=== PATIENT | male | born 1950 | race Caucasian/White ===

== ENCOUNTER → 2019-10-03 | Outpatient (CLI) | payer OTHER ==
[~2019-10-03] VITALS: Ht 177.8 cm; Wt 79.5 kg
[~2019-10-03] MED LIST: ARMOUR THYROID180 M1 PO; BYSTOLIC10 MG PO; CRESTOR20 MG PO; FISH OIL 1,0001 EAC9 PO; NEXIUM40 MG PO; PAMELOR25 MG PO; VALSARTAN-HCTZ1 EAC1 PO; XARELTO20 MG PO
[2019-10-03 07:10] VITALS: BP 133/48
--- NOTE | 2019-10-03 08:21 | NUR ---
PT RESTING. RESPONDS TO VERBAL STIMULI. AT BEDSIDE.
--- NOTE | 2019-10-03 08:49 | TEE ---
[facility] [address] [place] [address] TRANSESOPHAGEAL ECHOCARDIOGRAM Name: DEXDAYSI I [id number] Admission: 10/03/19 Attend Phys: Fletcher Chaudhry, Discharge: Date of : 50 Report #: [id number] THIS REPORT FOR: //name// APPROVED REPORT Study performed: 10/03/2019 07:29:57 EXAM: Comprehensive 2D, Doppler, and color-flow Echocardiogram Patient Location: Out-Patient Room #: 9 Status: routine BSA: 1.97 HR: 47 bpm BP: 111/54 mmHg Rhythm: Bradycardia Other Information Study Quality: Excellent Indications Atrial Fibrillation Echo Enhancing Agent Indication: Rule out Shunt Agent(s) / Amount(s) Used: Agitated Saline 7 cc Procedure After obtaining informed consent, patient underwent transesophageal echo in the Emergency Medicine Physician [facility]. Type of Sedation : Conscious Sedation Sedation was administered by Nurse. Sedation was achieved intravenously with: Versed (4 mg) Fentanyl (200 mcg) Transesophageal probe was inserted and advanced into esophagus without difficulty by Fletcher Chaudhry MD. Echo enhancement indication: R/O Septal defect. Echo enhancement agent administered: Agitated Saline The RANJITH was performed without complications. Throughout the procedure, the blood pressure, pulse oximetry, cardiac rhythm, and rate were monitored. The patient tolerated the procedure without adverse effects. Recovery from conscious sedation was uneventful and vital signs were stable. [facility] [address] [place] [address] TRANSESOPHAGEAL ECHOCARDIOGRAM Name: DAYSI KOWALSKI I Room #: REG [facility] [id number] Admission: 10/03/19 Attend Phys: Feltcher Chaudhry, Discharge: Date of : 50 Report #: [id number] Left Ventricle The left ventricle is normal size. There is normal LV segmental wall motion. There is normal left ventricular wall thickness. The left ventricular systolic function is normal. The left ventricular ejection fraction is within the normal range. LVEF is 55-60%. Right Ventricle The right ventricle is normal size. The right ventricular systolic function is normal. Atria Left atrium is dilated. No thrombus is visualized in the left atrium or appendage. No shunting by contrast bubble injection The right atrium size is normal. Aortic Valve The aortic valve is minimally sclerotic Mild aortic regurgitation. There is no aortic valvular stenosis. Mitral Valve The mitral valve is normal in structure. Mild mitral regurgitation. No evidence of mitral valve stenosis. Tricuspid Valve The tricuspid valve is normal in structure. There is no tricuspid valve regurgitation noted. Pulmonic Valve The pulmonary valve is normal in structure. There is no pulmonic valvular regurgitation. Great Vessels The aortic root is normal in size. The ascending aorta is normal in size. IVC is normal in size and collapses >50% with inspiration. Pericardium There is no pericardial effusion. <Conclusion> The left ventricular systolic function is normal. There is normal LV segmental wall motion. LVEF is 55-60%. Left atrium is mildly dilated. No thrombus is visualized in the left atrium or appendage. No shunting by contrast bubble injection [facility] [address] [place] [address] TRANSESOPHAGEAL ECHOCARDIOGRAM Name: DEXDAYSI Bustillo Room #: REG [facility].#: [id number] Admission: 10/03/19 Attend Phys: Fletcher Chaudhry, Discharge: Date of : 50 Report #: [id number] The aortic valve is minimally sclerotic, no stenosis. Mild aortic regurgitation. The mitral valve is normal in structure. Mild mitral regurgitation. There is no pericardial effusion. <ELECTRONICALLY SIGNED> By: Fletcher Chaudhry MD, FACC 10/03/1949 8 8 Fletcher Chaudhry MD, FACC /INF
== END | disposition home or self-care (01) ==
LOC: CATH 06:45
DX: I48.91 Unspecified atrial fibrillation (principal); I35.2 Nonrheumatic aortic (valve) stenosis with insufficiency; I34.0 Nonrheumatic mitral (valve) insufficiency; I10 Essential (primary) hypertension; E78.5 Hyperlipidemia, unspecified; E03.9 Hypothyroidism, unspecified; N40.0 Benign prostatic hyperplasia without lower urinary tract symptoms; Z98.890 Other specified postprocedural states; Z79.899 Other long term (current) drug therapy; Z86.73 Personal history of transient ischemic attack (TIA), and cerebral infarction without residual deficits; Z79.01 Long term (current) use of anticoagulants

== ENCOUNTER → 2019-10-04 | Outpatient (CLI) | payer OTHER ==
[2019-10-04 08:13] LABS: HEMATOCRIT 49.7 % (42.0-52.0); HEMOGLOBIN 16.3 gm/dL (14.0-18.0); MCH 28.6 pg (26.0-34.0); MCHC 32.8 g/dL (28.0-37.0); MCV 87.2 fL (80.0-100.0); RBC 5.71 mil/uL (4.50-6.00); RDW 15.4 % (10.5-14.5); WBC 7.2 thou/uL (4.0-11.0)
[2019-10-04 08:29] LABS: ALBUMIN 3.8 g/dL (3.4-5.0); CALCIUM 10.1 mg/dL (8.5-10.1); CREATININE 1.3 mg/dL (0.7-1.3); POTASSIUM 4.1 mmol/L (3.5-5.1); TOTAL BILIRUBIN 0.7 mg/dL (<0.1-1.0); TOTAL PROTEIN 6.9 g/dL (6.4-8.2)
== END ==
LOC: CAT
PROVIDERS: Internal Medicine Cardiovascular Disease
DX: I48.91 Unspecified atrial fibrillation (principal); I25.10 Atherosclerotic heart disease of native coronary artery without angina pectoris; M47.814 Spondylosis without myelopathy or radiculopathy, thoracic region; R16.0 Hepatomegaly, not elsewhere classified

== ENCOUNTER 2019-10-11 06:42 | Observation (INO) | payer OTHER ==
[~2019-10-11] VITALS: Ht 177.8 cm; Wt 81.6 kg
[2019-10-11] VITALS (17 sets, daily range): BP systolic 102–125; BP diastolic 47–75
[2019-10-11 07:22] LABS: ABSOLUTE NEUTROPHILS 4.3 thou/uL (1.4-8.2); BASOPHILS 1.1 % (0.0-2.0); EOSINOPHILS 2.8 % (0.0-3.0); HEMATOCRIT 52.3 % (42.0-52.0); HEMOGLOBIN 17.3 gm/dL (14.0-18.0); LYMPHOCYTES 30.3 % (24.0-44.0); MCH 28.7 pg (26.0-34.0); MONOCYTES 11.7 % (1.0-8.0); PLATELET COUNT 279 thou/uL (150-400); POLYS 54.1 % (36.0-66.0); RBC 6.01 mil/uL (4.50-6.00); RDW 15.4 % (10.5-14.5)
[2019-10-11 07:32] LABS: CALCIUM 10.2 mg/dL (8.5-10.1); CREATININE 1.6 mg/dL (0.7-1.3); POTASSIUM 3.6 mmol/L (3.5-5.1); TOTAL BILIRUBIN 0.7 mg/dL (<0.1-1.0); TOTAL PROTEIN 7.6 g/dL (6.4-8.2)
--- NOTE | 2019-10-11 18:00 | NUR ---
PT ADMITED FROM COORDINATOR SKILL TRAINING PROGRAM. ADMISSION HX AND ASSESSMENT COMPLETED. VSS. RIGHT GROIN INCISION C/D/I. NO HEMATOMA NOTED. REPORT HAVING RIGHT GROIN PAIN BUT DENIED THE NEED FOR PAIN MED. CHECKED FREQUENTLY AND NEEDS MET. WILL CONTINUE TO MONITOR.
--- NOTE | 2019-10-12 03:00 | NUR ---
pt requesting sleep aid order received, prn tylenol given for c/o panda, right groin dressing remains cdi, ambulating in hallway, Prn zofran given for c/o nausea and then pt resting quietly in bed, vss, pt planning on going home in am, will con't to monitor per ppoc.
[2019-10-12 06:13] VITALS: BP 141/72
[2019-10-12 09:22] VITALS: BP 141/72
--- NOTE | 2019-10-12 09:54 | NUR ---
ASSESSMENT CHARTED. PT ALERT AND ORIENTED. VSS. DENIED HAVING PAIN OR DISCOMFORT. RIGHT GROIN INCISION C/D/I. BRUISES NOTED ON THE GROIN. SEEN BY DR. YADAV. ORDERS GIVEN TO DISCHARGE PT TO HOME. DISCHARGE INSTRUCTIONS GIVEN TO PT. PT VERBERLISED UNDERSTANDING.
--- NOTE | 2019-10-16 14:08 | P ---
[facility] [place] [address] [address] PROCEDURE REPORT Name: DAYSI KOWALSKI I Room #: 219-P [facility] M.R.#: [id number] Admission: 10/11/19 Attend Phys: Hi Archer MD Discharge: 10/12/19 Date of : 50 Report #: [id number] THIS REPORT FOR: //name// CC: Hi Justin [facility] [place] DATE OF SERVICE: 10/11/2019 PREOPERATIVE DIAGNOSIS: Atrial fibrillation. POSTOPERATIVE DIAGNOSIS: Atrial fibrillation. PROCEDURES PERFORMED: 1. Atrial fibrillation ablation, CPT code 50306. 2. Program stimulation pacing after IV drug infusion, CPT code 68924. 3. 3D mapping, CPT code 13283. 4. Intracardiac echo, CPT code 94657. HISTORY: The patient is a 69-year-old with history of AFib, who is here for AFib ablation. ANESTHESIA: The patient underwent general anesthesia. There were no anesthesia related complications, but the patient did have low blood pressures and required some pressors and fluids prior to the ablation to maintain a good blood pressure. DESCRIPTION OF PROCEDURE: The patient underwent informed consent. We discussed the details of the procedure including the risks, which include but not limited to bleeding, infection, vascular damage, cardiac perforation, and pneumothorax. He understood these risks and is willing to proceed. The patient was brought to the EP laboratory in fasting and sedated state, prepped and draped in sterile fashion. I obtained access to the right femoral vein x 3, placing 8, 9 and 7-Nigerien short sheath using the modified Seldinger technique. Next, under fluoroscopy, I placed a decapolar catheter easily in the coronary sinus and ICE catheter into the right atrium. Using intracardiac ultrasound, there was evidence of 2 left and two right pulmonary veins. The left superior pulmonary vein was somewhat challenging to visualize under ultrasound. The patient had a nice thin interatrial septum. I then merged the ultrasound images with the cardiac CT scan. The patient was systemically heparinized and transseptal was performed using an SL1 sheath and a [place] needle. The first site, I went transseptal, I could not cross with my SL1 sheath for the cryo sheath. I was able to get the wire up into the left superior pulmonary vein. I tried to advance a Powerflex 6 mm x 4 cm balloon to dilate the septum, but this would not cross either. Therefore, I decided to repeat a second transseptal used slightly bigger band on my needle and this [facility] [address] [place] [address] PROCEDURE REPORT Name: DAYSI KOWALSKI Iwona Room #: 219-P [facility].#: [id number] Admission: 10/11/19 Attend Phys: Hi Archer MD Discharge: 10/12/19 Date of : 50 Report #: [id number] time, I got to a thinner part of the septum. I was able to cross into the left atrium with the cryo sheath. Next, I created a detailed 3D voltage map of the left atrium. At baseline, the patient was in sinus rhythm, sinus cycle length of 990 milliseconds, KS interval 200 milliseconds, QRS duration 83 milliseconds, QT interval 399 milliseconds. Next, I started by isolating the left inferior pulmonary vein. I performed a 4-minute freeze, which resulted in isolation of the vein within 43 seconds. I performed an additional freeze of 170 seconds. I then turned my attention to the left superior pulmonary vein. I performed two 4-minute freezes and the vein had not isolated. I performed a third freeze that was of 3 minutes duration and I placed the balloon somewhat more superiorly. This also did not result in isolation. Therefore, a fourth freeze was performed of 4 minutes' duration, which resulted in isolation of the vein within 58 seconds. To achieve isolation on this last freeze, I did counter clock the balloon as this left superior pulmonary vein had a very anterior takeoff that coursed along the left atrial appendage. Next, I turned my attention to the right superior pulmonary vein and performed phrenic nerve pacing with the decapolar catheter. There was never any phrenic nerve compromise. I performed a 4-minute freeze, which did not result in isolation. I then performed a 170 seconds and 115 second freeze and came off early as these were isolating the vein. I then performed two additional 4-minute freezes and at this time, I clocked the balloon to get more of the anterior aspect of the vessel and the last freeze resulted in isolation within 58 seconds. Finally, I turned my attention to the right inferior pulmonary vein and performed a 180 second freeze, which diminished the size of the electrograms but did not result in isolation. I performed a second freeze of 5 minutes' duration and this vein isolated within 119 seconds. Post-ablation, I removed the cryo balloon from the left atrium. I created a 3D voltage map of the left atrium and this showed that we had created a wide circumferential ablation of the pulmonary veins. I pulled my cryo sheath to the right atrium and I performed a basic EP study. At baseline, AV block was noted at 430 milliseconds. Atrial ERP was noted at 270 milliseconds at a [address] cycle length. Next, isoproterenol infusion was initiated at 2 mcg per minute. AV block was noted at 340 milliseconds and atrial ERP was noted at 270 milliseconds at a [address] cycle length. Double atrial extrastimuli were also delivered, and I could not induce any AFib, atrial flutter, nor any forms of SVT. Using intracardiac ultrasound, I verified there was no pericardial effusion. The patient received systemic protamine, sheaths were pulled, and [id number] suture was placed at the right groin. There were no procedure related complications. CONCLUSIONS: [facility] [address] [place] [address] PROCEDURE REPORT Name: DAYSI KOWALSKI I Room #: 219-P DIS [facility]..#: [id number] Admission: 10/11/19 Attend Phys: Hi Archer MD Discharge: 10/12/19 Date of : 50 Report #: [id number] 1. Successful AFib ablation with isolation of the pulmonary veins. 2. Normal EP study with no inducible AFib, atrial flutter, or SVT. <ELECTRONICALLY SIGNED> By: Hi Archer MD 10/16/19 1408 [id number] Hi Archer MD /nt
--- NOTE | 2019-10-16 14:09 | D ---
[facility] [place] [address] DISCHARGE SUMMARY Name: DAYSI KOWALSKI Iwona Room #: 219-P [facility] M.R.#: [id number] Admission: 10/11/19 Attend Phys: Hi Archer MD Discharge: 10/12/19 Date of : 50 Report #: [id number] THIS REPORT FOR: //name// CC: Hi Archer [facility] DISCHARGE DIAGNOSIS: Atrial fibrillation. PROCEDURES PERFORMED: AFib ablation. HISTORY: The patient is a 69-year-old male with history of AFib, here for AFib ablation. His procedure was successful without any procedure-related complications. HOSPITAL COURSE: He was monitored in the CCU overnight, he did well. On the day of discharge, he was doing well without any fevers, chills, chest pain, shortness of breath, PND, orthopnea, presyncope or syncope. PHYSICAL EXAMINATION: GENERAL: He was in no acute distress. HEENT: Oropharynx clear. NECK: Supple, no thyromegaly. HEART: Regular rate and rhythm. No murmurs, rubs or gallops. LUNGS: Clear to auscultation bilaterally. EXTREMITIES: No clubbing, cyanosis, or edema. His right groin showed some mild ecchymosis, but no hematoma. Telemetry showed sinus rhythm. As such, he was deemed stable for discharge home. He will continue the same medications including Xarelto. He will continue with the beta kash. We will not initiate antiarrhythmic drugs due to intolerances to medications. He will see my nurse practitioner in 2 weeks and see me in 3 months. Discharge instructions were reviewed. <ELECTRONICALLY SIGNED> By: Hi Archer MD 10/16/19 1409 [id number] Hi Archer MD /nt
== END 2019-10-12 09:53 | disposition home or self-care (01) ==
LOC: CATH → 2N 13:39 → CATH 19:41 → 2N 10-12 09:53
PROVIDERS: ADMIT Internal Medicine Cardiovascular Disease
DX: I48.91 Unspecified atrial fibrillation (principal); I10 Essential (primary) hypertension; E78.5 Hyperlipidemia, unspecified; E03.9 Hypothyroidism, unspecified; K21.9 Gastro-esophageal reflux disease without esophagitis; Z86.73 Personal history of transient ischemic attack (TIA), and cerebral infarction without residual deficits
CPT/HCPCS: 62110; 62900; 65020; 65040; 70005